=== PATIENT | female | born 1940 | race Asian ===

== ENCOUNTER 2018-10-30 22:49 | Observation (INO) | payer OTHER, BC ==
[2018-10-30] MEDS ORDERED: NS 1,000 ML IV ONE (22:52)
[2018-10-30] MEDS ORDERED: methylPREDNISolone SOD SUCC 125 MG/2 ML VIAL IVP ONE (22:53)
[2018-10-30] MEDS ORDERED: FAMOTIDINE 20 MG/2 ML SDV IVP ONE (22:53)
[2018-10-30] MEDS ORDERED: IOPAMIDOL (ISOVUE-300) 100 ML BTL ONE (23:30)
[2018-10-31] MEDS ORDERED: cefTRIAXone 1 GM/DEXTROSE 1 GM/50 ML BAG IV ONE (00:08)
[2018-10-31] MEDS ORDERED: LORazepam 0.5 MG TAB PO PRN (02:45)
[2018-10-31] MEDS ORDERED: ACETAMINOPHEN 325 MG TAB PO PRN (02:45)
[2018-10-31] MEDS ORDERED: ONDANSETRON 4 MG/2 ML VIAL IVP PRN (02:45)
[2018-10-31] MEDS ORDERED: ONDANSETRON DISINTEGRATING 4 MG TAB PO PRN (02:45)
[2018-10-31] MEDS ORDERED: ASPIRIN 325 MG TAB PO ONE (06:17)
[2018-10-31] MEDS ORDERED: diphenhydrAMINE 25 MG CAP PO ONE ×2 (13:09→15:15)
[2018-10-31] MEDS ORDERED: NITROGLYCERIN 0.4 MG BTL SL PRN (13:09)
[2018-10-31] MEDS ORDERED: FAMOTIDINE 20 MG TAB PO ONE (13:09)
[2018-10-31] MEDS ORDERED: DIAZEPAM 5 MG TAB PO ONE (13:09)
[2018-10-31] MEDS ORDERED: ASPIRIN EC 325 MG TAB PO ONE (13:09)
[2018-10-31] MEDS ORDERED: TEMAZEPAM 15 MG CAP PO PRN (13:09)
[2018-10-31] MEDS ORDERED: NS 1,000 ML IV SCH (13:15)
[2018-10-31] MEDS ORDERED: FAMOTIDINE 20 MG TAB ONE (15:15)
[2018-10-31] MEDS ORDERED: DIAZEPAM 5 MG TAB ONE (15:15)
[2018-10-31] MEDS ORDERED: LIDOCAINE 1% 300 MG/30 ML SDV ONE (15:19)
[2018-10-31] MEDS ORDERED: MIDAZOLAM 2 MG/2 ML VIAL ONE ×2 (15:19)
[2018-10-31] MEDS ORDERED: fentaNYL 100 MCG/2 ML INJ ONE (15:19)
[2018-10-31] MEDS ORDERED: IOPAMIDOL (ISOVUE-370) 150 ML BTL IV ONE (15:20)
[2018-10-31] MEDS ORDERED: BIVALIRUDIN 250 MG/5 ML VIAL IV ONE (17:01)
[2018-11-01] MEDS ORDERED: ASPIRIN 81 MG CHEWABLE TAB PO SCH (09:00)
[2018-11-01] MEDS ORDERED: ATORVASTATIN CALCIUM 20 MG TAB PO SCH (09:00)
[2018-11-01] MEDS ORDERED: GUAIFENESIN/DM 10 ML UDCUP PO PRN (09:09)
[2018-11-01] MEDS ORDERED: ESCITALOPRAM OXALATE 10 MG TAB PO SCH (12:00)
== END 2018-11-01 10:31 | disposition home or self-care (01) ==
DX: R06.09 Other forms of dyspnea (principal); R79.89 Other specified abnormal findings of blood chemistry; J02.9 Acute pharyngitis, unspecified; F41.9 Anxiety disorder, unspecified; R03.0 Elevated blood-pressure reading, without diagnosis of hypertension; G47.33 Obstructive sleep apnea (adult) (pediatric); E04.1 Nontoxic single thyroid nodule
CPT/HCPCS: 70360; 70491; 71045; 93005; 93306; 93458; 96361; 96374; 96375; 99285; C1760; G0378; J0696; J1200; J1644; J2250; J2930; J3010; Q9967